=== PATIENT | male | born 1985 | race Caucasian/White ===

== ENCOUNTER → 2018-12-15 08:58 | Outpatient (CLI) | payer OTHER, SELFPAY ==
--- NOTE | 2018-12-15 09:02 | DI.RAD.S_ITS ---
PROCEDURE: XR HAND RT MIN 3V INDICATIONS: right hand pain TECHNIQUE: 3 views of the hand(s) acquired. COMPARISON: None. FINDINGS: Bones: No fractures or dislocations. Carpal bones are normally aligned. No suspicious bony lesions. Soft tissues: No suspicious soft tissue calcifications. IMPRESSION: No evidence acute bony abnormality of the right hand Dictated by: Ramone Piper M.D. on 12/15/2018 at 9:20 Approved by: Ramone Piper M.D. on 12/15/2018 at 9:21
== END ==
PROVIDERS: Visit Provider Physician Assistant
DX: M79.641 Pain in right hand (principal)
CPT/HCPCS: 73130